=== PATIENT | female | born 1930 | race Caucasian/White ===

== ENCOUNTER → 2017-04-28 | Outpatient (CLI) | payer OTHER, MEDICARE ==
[~2017-04-28] VITALS: Ht 154.9 cm; Wt 66.5 kg
[~2017-04-28] MED LIST: ACTOS15 MG PO; CALCIUM 500 +1 EAC2 PO; CENTRUM SILVER1 EAC3 PO; DIOVAN HCT 11 TABLET PO; GABAPENTIN600 MG PO; GABAPENTIN800 MG PO; GLUCOTROL10 MG PO; LASIX20 MG PO; LIPITOR40 MG PO; LO-DOSE ASPIRIN81 M2 PO; MICROZIDE12.5 M1 PO; POTASSIUM CHLO10 ME4 PO; RESTASIS MULTI5.5 ML BOTH EYES; TIROSINT100 MCG PO; ULTRAM50 MG PO; VITAMIN D31000 UNI2 PO
[2017-04-28 13:08] LABS: POINT-OF-CARE METER ID UU14107333; POINT-OF-CARE USER ID AHSUCAJR
[2017-04-28 13:44] LABS: ANION GAP 7 MEQ/L (2-14); CHLORIDE 104 MEQ/L (99-109); GFR ESTIMATE (CALCULATED) > 59 mL/min/; GLUCOSE 119 mg/dL (70-99); POTASSIUM 4.9 MEQ/L (3.7-5.4); SAMPLE HEMOLYSIS CHECK 2; SAMPLE ICTERIC CHECK 0; SAMPLE LIPEMIA CHECK 0; SODIUM 141 MEQ/L (136-147); UREA NITROGEN (BUN) 14 mg/dL (9-23)
[2017-04-28 15:12] LABS: POINT-OF-CARE METER ID UU13113819
== END | disposition home or self-care (01) ==
LOC: AMB 11:30
PROVIDERS: Internal Medicine Gastroenterology
DX: K80.70 Calculus of gallbladder and bile duct without cholecystitis without obstruction (principal); E11.9 Type 2 diabetes mellitus without complications; I10 Essential (primary) hypertension; I25.10 Atherosclerotic heart disease of native coronary artery without angina pectoris; E03.9 Hypothyroidism, unspecified; E78.00 Pure hypercholesterolemia, unspecified; Z79.82 Long term (current) use of aspirin; Z79.84 Long term (current) use of oral hypoglycemic drugs; Z95.1 Presence of aortocoronary bypass graft
CPT/HCPCS: 74328; 80048; 82948; 87081; 93005; C1757; C1769; J0330; J2405; J3010

== ENCOUNTER 2017-04-29 13:18 | Inpatient (IN) | payer OTHER, MEDICARE ==
[~2017-04-29] VITALS: Ht 152.4 cm; Wt 67.3 kg
[~2017-04-29 13:18] MED LIST changes: -ACTOS15 MG PO; -CALCIUM 500 +1 EAC2 PO; -CENTRUM SILVER1 EAC3 PO; -GABAPENTIN800 MG PO; -LASIX20 MG PO; -POTASSIUM CHLO10 ME4 PO; -RESTASIS MULTI5.5 ML BOTH EYES; -VITAMIN D31000 UNI2 PO
[2017-04-29 14:15] LABS: INTER. NORMALIZED RATIO 1.1; PROTHROMBIN TIME 12.8 SEC (10.2-12.9)
[2017-04-29 14:20] LABS: HEMATOCRIT 36.8 % (36.0-46.0); MCH 31.9 PG (29.0-34.0); MCHC 32.9 G/DL (30.0-36.0); MCV 97.1 FL (83-99); PLATELET COUNT 180 K/uL (156-360); RBC DIS.WIDTH-CV 13.3 % (11.8-14.6); RBC DIS.WIDTH-SD 47.6 % (39-53); RED BLOOD COUNT 3.79 M/uL (3.80-5.20); WHITE BLOOD COUNT 21.2 K/uL (4.1-10.2)
[2017-04-29 14:30] LABS: CHLORIDE 106 mEq/L (99-109); SODIUM 139 mEq/L (136-147)
[2017-04-29 14:31] LABS: POTASSIUM 3.9 mEq/L (3.7-5.4)
[2017-04-29 14:32] LABS: GLUCOSE 135 mg/dL (70-99)
[2017-04-29 14:33] LABS: ANION GAP 7 MEQ/L (2-14)
[2017-04-29 14:34] LABS: TOTAL BILIRUBIN 3.4 mg/dL (0.0-1.0)
[2017-04-29 14:35] LABS: ALKALINE PHOSPHATASE 79 IU/L (3-129)
[2017-04-29 14:36] LABS: GFR ESTIMATE (CALCULATED) > 59 mL/min/
[2017-04-29 14:37] LABS: UREA NITROGEN (BUN) 22 mg/dL (9-23)
[2017-04-29 14:39] LABS: LIPASE 7 U/L (1.0-51.0)
[2017-04-29 15:30] LABS: ANISOCYTOSIS 1+; ATYPICAL LYMPHOCYTE 30.2 %; BAND NEUTROPHILS 7.5 % (0-8.0); BASOPHILS 0.5 %; EOSINOPHIL ABS CT 0; INSTRUMENT ABS NEUTROPHIL CT 5.1 K/uL; LYMPHOCYTES 26.4 % (15.0-45.0); SEG.NEUTROPHILS 30.2 % (46.0-76.0); SMUDGE CELLS 60.4
[2017-04-29] MEDS ORDERED: VITAMIN D31000 UNI2 PO (16:36)
[2017-04-29] MEDS ORDERED: GABAPENTIN800 MG PO (16:51)
[2017-04-29] MEDS ORDERED: LASIX20 MG PO (17:12)
[2017-04-29] MEDS ORDERED: RESTASIS MULTI5.5 ML BOTH EYES (17:12)
[2017-04-29] MEDS ORDERED: POTASSIUM CHLO10 ME4 PO (17:13)
[2017-04-29] MEDS ORDERED: CENTRUM SILVER1 EAC3 PO (17:13)
[2017-04-29] MEDS ORDERED: CALCIUM 500 +1 EAC2 PO (17:14)
[2017-04-29 20:17] VITALS: BP 138/62
[2017-04-29 21:35] LABS: POINT-OF-CARE METER ID UU14188577
[2017-04-29 22:23] LABS: POINT-OF-CARE METER ID UU14149397
[2017-04-29 23:15] VITALS: BP 117/58
[2017-04-30 04:27] VITALS: BP 162/67
[2017-04-30 06:19] LABS: POINT-OF-CARE METER ID UU14117124
[2017-04-30 06:23] LABS: HEMATOCRIT 36.7 % (36.0-46.0); MCH 31.2 PG (29.0-34.0); MCHC 32.4 G/DL (30.0-36.0); MCV 96.3 FL (83-99); MEAN PLAT.VOLUME 12.4 uM^3 (9.5-12.4); PLATELET COUNT 172 K/uL (156-360); RBC DIS.WIDTH-CV 13.2 % (11.8-14.6); RBC DIS.WIDTH-SD 47.2 % (39-53); RED BLOOD COUNT 3.81 M/uL (3.80-5.20); WHITE BLOOD COUNT 18.1 K/uL (4.1-10.2)
[2017-04-30 07:24] LABS: POTASSIUM ND MEQ/L (3.7-5.4)
[2017-04-30 07:38] VITALS: BP 135/60
[2017-04-30 07:55] LABS: POINT-OF-CARE METER ID UU14117124
[2017-04-30 08:27] LABS: ALKALINE PHOSPHATASE 90 IU/L (3-129); ANION GAP 8 MEQ/L (2-14); CHLORIDE 105 MEQ/L (99-109); GFR ESTIMATE (CALCULATED) > 59 mL/min/; GLUCOSE 61 mg/dL (70-99); LIPASE 4 U/L (1.0-51.0); SAMPLE HEMOLYSIS CHECK 2; SAMPLE ICTERIC CHECK 1; SAMPLE LIPEMIA CHECK 0; SODIUM 141 MEQ/L (136-147); TOTAL BILIRUBIN 3.9 MG/DL (0.0-1.0); UREA NITROGEN (BUN) 16 mg/dL (9-23)
[2017-04-30 09:50] LABS: NO-CHARGE AST (GOT) 195 IU/L (15-37); POTASSIUM 3.8 MEQ/L (3.7-5.4)
[2017-04-30 11:45] VITALS: BP 170/69
[2017-04-30] MEDS ORDERED: ACTOS15 MG PO (11:55)
[2017-04-30 12:14] LABS: POINT-OF-CARE METER ID UU14188577
[2017-04-30 16:39] VITALS: BP 153/67
[2017-04-30 17:07] LABS: POINT-OF-CARE METER ID UU14188577
[2017-04-30 18:21] LABS: ADD MIUA? YES; BILIRUBIN NEGATIVE; BLOOD MODERATE; COLOR YELLOW ((YELLOW)); GLUCOSE (STRIP) 50; KETONES NEGATIVE; LEUKOCYTES SMALL; NITRITE NEGATIVE; PROTEIN (STRIP) NEGATIVE; SPECIFIC GRAVITY 1.009 (1.000-1.030)
[2017-04-30 18:58] LABS: BACTERIA RARE /HPF; EPITHELIAL CELLS RARE /HPF; MUCUS NONE SEEN /LPF; RED BLOOD CELLS 0-5 /HPF (0-5); WHITE BLOOD CELLS 0-5 /HPF (0-5); WHITE BLOOD CELLS CLUMP RARE /HPF (0-5)
[2017-04-30 19:11] LABS: C DIFF TOXIN NEGATIVE (NEGATIVE)
[2017-04-30 19:12] LABS: PROBE CHECK PASS; SPECIMEN PROCESSING CONTROL PASS
[2017-04-30 20:52] VITALS: BP 142/70
[2017-04-30 22:03] LABS: POINT-OF-CARE METER ID UU14117124
[2017-05-01 00:12] VITALS: BP 136/70
[2017-05-01 04:07] VITALS: BP 125/70
[2017-05-01 06:34] LABS: POINT-OF-CARE METER ID UU14117124
[2017-05-01 07:34] LABS: HEMATOCRIT 35.1 % (36.0-46.0); MCHC 32.2 G/DL (30.0-36.0); MCV 96.2 FL (83-99); PLATELET COUNT 156 K/uL (156-360); RBC DIS.WIDTH-CV 12.9 % (11.8-14.6); RBC DIS.WIDTH-SD 46.1 % (39-53); RED BLOOD COUNT 3.65 M/uL (3.80-5.20); WHITE BLOOD COUNT 14.8 K/uL (4.1-10.2)
[2017-05-01 08:12] LABS: ANION GAP 8 MEQ/L (2-14); CHLORIDE 110 MEQ/L (99-109); GFR ESTIMATE (CALCULATED) > 59 mL/min/; POTASSIUM 3.5 MEQ/L (3.7-5.4); SAMPLE HEMOLYSIS CHECK 0; SAMPLE ICTERIC CHECK 0; SAMPLE LIPEMIA CHECK 0; SODIUM 147 MEQ/L (136-147); UREA NITROGEN (BUN) 10 mg/dL (9-23)
[2017-05-01 08:20] VITALS: BP 130/76
[2017-05-01 08:20] LABS: GLUCOSE 106 mg/dL (70-99)
[2017-05-01 11:46] LABS: POINT-OF-CARE METER ID UU14188577
[2017-05-01 12:33] VITALS: BP 136/72
[2017-05-01 14:29] LABS: ALKALINE PHOSPHATASE 110 IU/L (3-129)
[2017-05-01 14:31] LABS: TOTAL BILIRUBIN 2.2 MG/DL (0.0-1.0)
[2017-05-01 15:54] VITALS: BP 142/70
[2017-05-01 16:46] LABS: POINT-OF-CARE METER ID UU14117124
[2017-05-01 20:12] VITALS: BP 150/78
[2017-05-01 21:28] LABS: POINT-OF-CARE METER ID UU14149397
[2017-05-02 04:17] VITALS: BP 148/70
[2017-05-02 06:56] LABS: POINT-OF-CARE METER ID UU14117124
[2017-05-02 07:26] LABS: ALKALINE PHOSPHATASE 129 IU/L (3-129); ANION GAP 8 MEQ/L (2-14); CHLORIDE 110 MEQ/L (99-109); GFR ESTIMATE (CALCULATED) > 59 mL/min/; GLUCOSE 129 mg/dL (70-99); POTASSIUM 3.8 MEQ/L (3.7-5.4); SAMPLE HEMOLYSIS CHECK 0; SAMPLE ICTERIC CHECK 0; SAMPLE LIPEMIA CHECK 0; SODIUM 145 MEQ/L (136-147); TOTAL BILIRUBIN 1.6 MG/DL (0.0-1.0); UREA NITROGEN (BUN) 12 mg/dL (9-23)
[2017-05-02 07:45] VITALS: BP 159/79
[2017-05-02 11:16] VITALS: BP 140/78
[2017-05-02 11:39] LABS: POINT-OF-CARE METER ID UU14117124
[2017-05-02 15:40] VITALS: BP 130/65
[2017-05-02 17:44] LABS: POINT-OF-CARE METER ID UU14149397
[2017-05-02 20:11] VITALS: BP 148/75
[2017-05-02 21:21] LABS: POINT-OF-CARE METER ID UU14117124
[2017-05-03 00:08] VITALS: BP 148/68
[2017-05-03 06:53] LABS: POINT-OF-CARE METER ID UU14149397
[2017-05-03 07:53] VITALS: BP 164/84
[2017-05-03 09:26] LABS: HEMATOCRIT 37.4 % (36.0-46.0); MCH 31.3 PG (29.0-34.0); MCHC 32.9 G/DL (30.0-36.0); MCV 95.2 FL (83-99); MEAN PLAT.VOLUME 11.9 uM^3 (9.5-12.4); PLATELET COUNT 170 K/uL (156-360); RBC DIS.WIDTH-SD 45.7 % (39-53); RED BLOOD COUNT 3.93 M/uL (3.80-5.20); WHITE BLOOD COUNT 16.7 K/uL (4.1-10.2)
[2017-05-03 09:59] LABS: ANION GAP 10 MEQ/L (2-14); CHLORIDE 107 MEQ/L (99-109); GFR ESTIMATE (CALCULATED) > 59 mL/min/; POTASSIUM 3.5 MEQ/L (3.7-5.4); SAMPLE HEMOLYSIS CHECK 0; SAMPLE ICTERIC CHECK 0; SAMPLE LIPEMIA CHECK 0; SODIUM 143 MEQ/L (136-147); UREA NITROGEN (BUN) 13 mg/dL (9-23)
[2017-05-03 10:01] LABS: GLUCOSE 215 mg/dL (70-99)
[2017-05-03 10:47] LABS: ALKALINE PHOSPHATASE 144 IU/L (3-129)
[2017-05-03 10:49] LABS: DIRECT BILIRUBIN 0.4 mg/dL (0.0-0.3); TOTAL BILIRUBIN 1.2 MG/DL (0.0-1.0)
[2017-05-03] MEDS ORDERED: CIPRO500 MG PO (10:53)
[2017-05-03 12:04] LABS: POINT-OF-CARE METER ID UU14149397
[2017-05-03 12:19] VITALS: BP 142/98
== END 2017-05-03 14:11 | disposition home or self-care (01) | DRG 872 ==
LOC: EME 13:18 → 3EAST 15:13 → ENRESERV 15:13 → EDOF 15:13 → ENRESERV 15:34 → 3EAST 20:03
PROVIDERS: Emergency Medicine; Family Medicine; Hospitalist; Internal Medicine Gastroenterology; Physician Assistant
DX: A41.50 Gram-negative sepsis, unspecified (principal); I10 Essential (primary) hypertension; E78.5 Hyperlipidemia, unspecified; E11.21 Type 2 diabetes mellitus with diabetic nephropathy; E11.40 Type 2 diabetes mellitus with diabetic neuropathy, unspecified; I25.10 Atherosclerotic heart disease of native coronary artery without angina pectoris; Z66 Do not resuscitate; Z96.659 Presence of unspecified artificial knee joint; Z95.1 Presence of aortocoronary bypass graft; Z85.6 Personal history of leukemia; Z79.82 Long term (current) use of aspirin
CPT/HCPCS: 71010; 74328; 80048; 80053; 80076; 81003; 82948; 83690; 84999; 85025; 85027; 85610; 87040; 87081; 87086; 87493; 93005; 99281; 99285; C1757; C1769; J0330; J1644; J1815; J2405; J2543; J3010; J7030; J7050; S0028